=== PATIENT | male | born 1945 | race Caucasian/White ===

== ENCOUNTER 2017-06-04 11:56 | Day surgery (SDC) | payer MEDICARE, BC ==
[~2017-06-04 11:56] MED LIST: Acetaminophen TAB* 325 MG PO PRN; Buffered Lidocaine 0.9% SYRIN* 5 ML/SYR SYRINGE INTRADERM ONE
[2017-06-04] MEDS ORDERED: Midazolam* 1 MG/ML 2 ML VIAL (2 MG) ONE ×2 (13:48→14:00)
[2017-06-04 14:50] VITALS: BP 128/68
[2017-06-04] MEDS ORDERED: Cyclopentolate 1% OPTH.SOL* 2 ML BTL ONE (14:58)
[2017-06-04] MEDS ORDERED: Neomycin/Polymy/Dex OPTH.SUSP* MAXITROL 0.1% 5 ML ONE (14:58)
[2017-06-04] MEDS ORDERED: Lidocaine 2% EPI 1:200000 MPF* 20 ML VIAL ONE (14:58)
[2017-06-04] MEDS ORDERED: Povidone Iodine 5% OPTH* 30 ML BTL ONE (14:58)
[2017-06-04] MEDS ORDERED: Lidocaine 1% MPF* 2 ML VIAL ONE (14:58)
[2017-06-04] MEDS ORDERED: Ketorolac 0.5% OPHTH (NF) 0.5 % 5 ML BTL ONE (14:58)
[2017-06-04] MEDS ORDERED: acetaZOLAMIDE TAB* 250 MG ONE (14:58)
[2017-06-04] MEDS ORDERED: Phenylephrine 2.5% OPTH.SOL* 2 ML BTL ONE (14:58)
[2017-06-04] MEDS ORDERED: Proparacaine 0.5% OPHTH.SOL* 15 ML BTL ONE (14:58)
--- NOTE | 2017-06-05 04:55 | OP ---
DATE OF OPERATION: 06/04/17 - [facility] DATE OF : 43 SURGEON: Toni Akbar MD PREOPERATIVE DIAGNOSES: Cataract, right; moderate glaucoma, right eye. POSTOPERATIVE DIAGNOSES: Cataract, right; moderate glaucoma, right eye. OPERATIVE PROCEDURE: Extracapsular cataract extraction with intraocular lens implant and iStent. DESCRIPTION OF PROCEDURE: The patient was brought to the operating room after being given 1/2% Alcaine with epinephrine drops in the preoperative area. The eye was prepped and draped in the usual sterile fashion. Sterile drape and eyelid speculum were placed. Again, topical 1/2% Alcaine with epinephrine was given. A paracentesis incision was made at the 9 o'clock position with the No.75 blade. Clear cornea incision 2.2 x 2.2-mm was created at the 12 o'clock position starting at the anterior limbus using the 2.2-mm keratome. The anterior chamber was irrigated with 0.4 mL of 1% non-preservative intracameral lidocaine and filled with DisCoVisc. A capsulorrhexis was completed using the cystotome and the Utrata forceps. Hydrodissection was performed with balanced salt solution. The lens nucleus was removed with the Phacoemulsification handpiece without incident. Cortex was removed with the irrigation-aspiration handpiece. The capsular bag was re-inflated using DisCoVisc and an [id number] implant was inserted with the shooter, oriented to the 91-degree meridian followed by [id number] iStent inserted with the shooter into the 3 o'clock position into the trabecular mesh work. Horizontal reference reilly were made with the patient in seated position in the preoperative area. The irrigation- aspiration handpiece was used to remove all residual DisCoVisc. The eye was refilled with balanced salt solution and the wound checked and found to be watertight. Topical Maxitrol drops were given. [id number]/[facility] #: [id number] [facility]ALTH[facility]ARE SYSTEMRaffi
== END 2017-06-04 14:44 | disposition home or self-care (01) ==
LOC: OREAST 11:56
PROVIDERS: ATTEND Specialist
DX: H25.811 Combined forms of age-related cataract, right eye (principal); H40.1232 Low-tension glaucoma, bilateral, moderate stage; F17.210 Nicotine dependence, cigarettes, uncomplicated; I10 Essential (primary) hypertension; K21.9 Gastro-esophageal reflux disease without esophagitis
CPT/HCPCS: A9270-GY; C1783; J2250; V2787

== ENCOUNTER 2017-06-11 06:56 | Day surgery (SDC) | payer MEDICARE, BC ==
[2017-06-11] MEDS ORDERED: Midazolam* 1 MG/ML 2 ML VIAL (2 MG) ONE ×2 (08:10→08:32)
[2017-06-11 09:17] VITALS: BP 118/71
--- NOTE | 2017-06-11 09:46 | OP ---
DATE OF OPERATION: 06/11/2017. DATE OF : 1945. SURGEON: Toni Akbar M.D. PREOPERATIVE DIAGNOSIS: Cataract left eye, moderate glaucoma left. POSTOPERATIVE DIAGNOSIS: Cataract left eye, moderate glaucoma left. OPERATIVE PROCEDURE: Extracapsular cataract extraction with intraocular lens implant and iStent left eye. PROCEDURE: The patient was brought to the operating room after being given 1/2% Alcaine with epineph rine drops in the preoperative area. The eye was prepped and draped in the usual sterile fashion. S terile drape and eyelid speculum were placed. Again, topical 1/2% Alcaine with epinephrine was given . A paracentesis incision was made at the 3 o'clock position with the No.75 blade. Clear cornea inc ision 2.2 x 2.2-mm was created at the 6 o'clock position starting at the anterior limbus using the 2. 2-mm keratome. The anterior chamber was irrigated with 0.4 mL of 1% non-preservative intracameral li docaine and filled with DisCoVisc. A capsulorrhexis was completed using the cystotome and the Utrata forceps. Hydrodissection was performed with balanced salt solution. The lens nucleus was removed wi th the Phacoemulsification handpiece without incident. Cortex was removed with the irrigation-aspira tion handpiece. The capsular bag was re-inflated using DisCoVisc and an [id number] 14.5 implant was inse rted with the shooter, followed by a [id number] iStent inserted into the trabecular meshwork at the 9 o' clock position with its shooter. The irrigation-aspiration handpiece was used to remove all residual DisCoVisc. The eye was refilled with balanced salt solution and the wound checked and found to be w atertight. Topical Maxitrol drops were given. [id number]/[facility] #: [id number]
[2017-06-11] MEDS ORDERED: Proparacaine 0.5% OPHTH.SOL* 15 ML BTL ONE (12:09)
[2017-06-11] MEDS ORDERED: Cyclopentolate 1% OPTH.SOL* 2 ML BTL ONE (12:09)
[2017-06-11] MEDS ORDERED: Phenylephrine 2.5% OPTH.SOL* 2 ML BTL ONE (12:09)
[2017-06-11] MEDS ORDERED: Lidocaine 1% MPF* 2 ML VIAL ONE (12:09)
[2017-06-11] MEDS ORDERED: Povidone Iodine 5% OPTH* 30 ML BTL ONE (12:09)
[2017-06-11] MEDS ORDERED: Neomycin/Polymy/Dex OPTH.SUSP* MAXITROL 0.1% 5 ML ONE (12:09)
[2017-06-11] MEDS ORDERED: Ketorolac 0.5% OPHTH (NF) 0.5 % 5 ML BTL ONE (12:09)
[2017-06-11] MEDS ORDERED: acetaZOLAMIDE TAB* 250 MG ONE (12:09)
[2017-06-11] MEDS ORDERED: Lidocaine 2% EPI 1:200000 MPF* 20 ML VIAL ONE (12:09)
== END 2017-06-11 09:12 | disposition home or self-care (01) ==
LOC: OREAST 06:56
PROVIDERS: ATTEND Specialist
DX: H25.812 Combined forms of age-related cataract, left eye (principal); H40.1232 Low-tension glaucoma, bilateral, moderate stage; Z87.891 Personal history of nicotine dependence; I10 Essential (primary) hypertension
CPT/HCPCS: A9270-GY; C1783; J2250; V2632

== ENCOUNTER 2017-08-21 16:42 | Emergency (ER) | payer MEDICARE, BC ==
[2017-08-21] MEDS ORDERED: Etomidate* 2 MG/ML 20 ML VIAL (40 MG) ONE (17:10)
[2017-08-21] MEDS ORDERED: NS 0.9% 1000 ML* 1,000 ML IV ONE (17:21)
[2017-08-21 17:34] LABS: ABS Basophils 0.1 10^3/ul (0-0.2); ABS Eosinophils 0.1 10^3/ul (0-0.6); ABS Lymphocytes 4.4 10^3/ul (1.0-4.8); ABS Monocytes 0.9 10^3/ul (0-0.8); ABS Neutrophils 7.6 10^3/ul (1.5-7.7); ABS Nucleated RBC 0 10^3/ul; Eosinophil % 0.9 % (0-6); Hematocrit 44 % (42-52); Lymphocyte % 33.8 % (25-47); Mean Corpuscular HGB Conc 34 g/dl (31-36); Mean Corpuscular Hemoglobin 30 pg (27-31); Mean Corpuscular Volume 88 fL (80-94); Mean Platelet Volume 7.5 um3 (7.4-10.4); Nucleated Red Blood Cells % 0; Platelet Count 564 10^3/ul (150-450); Red Blood Count 4.96 10^6/ul (4.0-5.4); Red Cell Distribution Width 13 % (10.5-15); White Blood Count 13.1 10^3/ul (3.5-10.8)
[2017-08-21 17:50] LABS: EGFR Non-African American 73.2 (>60)
--- NOTE | 2017-08-21 18:27 | RAD ---
Indication: High heart rate. Single frontal view of the chest performed at 1734 hours was reviewed. Comparison is made with previous exam dated March 10, 2014. There is elevated left hemidiaphragm noted. Right lung field is clear. No mediastinal shift is noted. No pneumothorax is noted. IMPRESSION: ELEVATED LEFT HEMIDIAPHRAGM. RIGHT LUNG FIELD IS CLEAR.
[2017-08-21] MEDS ORDERED: Etomidate* 2 MG/ML 10 ML VIAL IV ONE (18:40)
--- NOTE | 2017-08-21 21:03 | ED ---
Hari Carreno Jennifer, scribed for Denzel Shabazz MD on 08/21/17 at 1659 . Dizziness - HPI Summary HPI Summary: The patient is a 72 year old male who presents with sudden onset dizziness today. The patient explains he was just on the phone when he became dizzy and then started to sweat. He explains it was strong but didnt last long. He additionally complains of an ache/pain in his jaw, pressure in the ears, shortness of breath, phlegm and cough, and a lot of pressure behind the eyes. The patient denies cardiac history. - History Of Current Complaint Chief Complaint: EDDizziness Stated Complaint: DIZZINESS/COLD SWEAT/HEAD PRESSURE Hx Obtained From: Patient Onset/Duration: Resolved, Suddenly Timing: Intermittent Episode Lasting - Did not last long Severity Initially: Mild Severity Currently: Mild Character: Dizzy Aggravating Factor(s): Nothing Alleviating Factor(s): Nothing Associated Signs And Symptoms: Positive: Other: - dizziness, sweats, jaw pain, pressure in ears, SOB, cough and phlegm, pressure behind the eyes - Allergies/Home Medications Allergies/Adverse Reactions: Allergies Allergy/AdvReac Type Severity Reaction Status Date / Time Penicillins Allergy Severe Anaphylatic Verified 06/11/17 07:15 Shock Home Medications: Home Medications Latanoprost 0.005%* [Xalatan 0.005%*] 1 drop BOTH EYES QAM 08/21/17 [History Confirmed 08/21/17] Naproxen Sodium [Aleve] 220 mg PO Q6HR PRN 08/21/17 [History Confirmed 08/21/17] Ranitidine TAB (NF) [Zantac TAB (NF)] 300 mg PO DAILY 08/21/17 [History Confirmed 08/21/17] hydroCHLOROthiazide [Hydrochlorothiazide] 12.5 mg PO DAILY 08/21/17 [History Confirmed 08/21/17] PMH/Surg Hx/FS Hx/Imm Hx Endocrine/Hematology History: Denies: Hx Diabetes Cardiovascular History: Reports: Hx Hypertension - controlled with meds Denies: Hx Congestive Heart Failure, Hx Pacemaker/ICD GI History: Reports: Hx Hiatal Hernia - elavated hemidiaphram History: Denies: Hx Renal Disease Musculoskeletal History: Reports: Hx Arthritis Sensory History: Reports: Hx Cataracts - both, Hx Contacts or Glasses - glasses , Hx Glaucoma, Hx Hearing Aid - hearing aides - doesn't wwear Opthamlomology History: Reports: Hx Cataracts - both, Hx Contacts or Glasses - glasses, Hx Glaucoma Neurological History: Reports: Hx Headaches - hemispherical - left eye and left head, Hx Migraine - hx of in past, Other Neuro Impairments/Disorders - Hx vertigo Psychiatric History: Denies: Hx Panic Disorder - Cancer History Hx Chemotherapy: No - Surgical History Surgery Procedure, Year, and Place: LYMPH NODES REMOVER - Lt COLLAR BONE. GANGLION CYST REMOVED. APPENDECTOMY. cyst from from under nipple Hx Anesthesia Reactions: No Infectious Disease History: No Infectious Disease History: Denies: Traveled Outside the [place] in Last 30 Days - Family History Known Family History: Negative: Renal Disease - Social History Alcohol Use: Daily Alcohol Amount: 1-2 drinks Substance Use Type: Reports: None Smoking Status (MU): Light Every Day Tobacco Smoker Amount Used/How Often: 4-5 cigarettes a day, smoked for 50 years approx Review of Systems Positive: Skin Diaphoresis Eyes: Other - pressure behind the eyes ENT: Other - pain in the jaw Positive: Ear Ache Positive: Shortness Of Breath, Cough Neurological: Other - Dizziness All Other Systems Reviewed And Are Negative: Yes Physical Exam - Summary Physical Exam Summary: Appearance: Well-appearing, Well-nourished Skin: Warm Eyes: Normal ENT: Normal Neck: Supple, nontender Respiratory: Clear to auscultation Cardiovascular: marked narrow complex tachycardia on monitor. Abdomen: Soft, nontender Musculoskeletal: Normal, Strength/ROM Intact Neurological: Normal, A&Ox3 Psychiatric: Normal General: No acute distress Triage Information Reviewed: Yes Vital Signs On Initial Exam: Initial Vitals Temp Pulse Resp BP Pulse Ox 98 F 192 22 101/76 95 08/21/17 16:45 08/21/17 16:45 08/21/17 16:45 08/21/17 16:45 08/21/17 16:45 Vital Signs Reviewed: Yes Procedures - Additional Procedures Additional Procedures: cardioversion/defib - 200J synchronized cardioversion with an anxiolytic onboard, Etomidate - 10mL. Patient restored back to normal sinus rhythm. Diagnostics - Vital Signs Vital Signs Temp Pulse Resp BP Pulse Ox 08/21/17 16:45 98 F 192 22 101/76 95 - Laboratory Lab Results: Lab Results 08/21/17 08/21/17 08/21/17 Range/Units 17:25 17:25 17:25 WBC 13.1 H (3.5-10.8) 10^3/ul RBC 4.96 (4.0-5.4) 10^6/ul Hgb 15.0 (14.0-18.0) g/dl Hct 44 (42-52) % MCV 88 (80-94) fL MCH 30 (27-31) pg MCHC 34 (31-36) g/dl RDW 13 (10.5-15) % Plt Count 564 H (150-450) 10^3/ul MPV 7.5 (7.4-10.4) um3 Neut % (Auto) 57.9 (38-83) % Lymph % (Auto) 33.8 (25-47) % Christian % (Auto) 6.7 (0-7) % Eos % (Auto) 0.9 (0-6) % Baso % (Auto) 0.7 (0-2) % Absolute Neuts (auto) 7.6 (1.5-7.7) 10^3/ul Absolute Lymphs (auto) 4.4 (1.0-4.8) 10^3/ul Absolute Monos (auto) 0.9 H (0-0.8) 10^3/ul Absolute Eos (auto) 0.1 (0-0.6) 10^3/ul Absolute Basos (auto) 0.1 (0-0.2) 10^3/ul Absolute Nucleated RBC 0 10^3/ul Nucleated RBC % 0 Sodium 142 (139-145) mmol/L Potassium 3.6 (3.5-5.0) mmol/L Chloride 103 (101-111) mmol/L Carbon Dioxide 30 (22-32) mmol/L Anion Gap 9 (2-11) mmol/L BUN 18 (6-24) mg/dL Creatinine 1.00 (0.67-1.17) mg/dL Est GFR ( Amer) 94.2 (>60) Est GFR (Non-Af Amer) 73.2 (>60) BUN/Creatinine Ratio 18.0 (8-20) Glucose 101 H (70-100) mg/dL Lactic Acid 1.5 (0.5-2.0) mmol/L Calcium 9.4 (8.6-10.3) mg/dL Total Bilirubin 0.40 (0.2-1.0) mg/dL AST 15 (13-39) U/L ALT 15 (7-52) U/L Alkaline Phosphatase 65 (34-104) U/L Troponin I 0.00 (<0.04) ng/mL Total Protein 7.0 (6.4-8.9) g/dL Albumin 4.1 (3.2-5.2) g/dL Globulin 2.9 (2-4) g/dL Albumin/Globulin Ratio 1.4 (1-3) TSH 1.12 (0.34-5.60) mcIU/mL / Range/Units 20:01 WBC (3.5-10.8) 10^3/ul RBC (4.0-5.4) 10^6/ul Hgb (14.0-18.0) g/dl Hct (42-52) % MCV (80-94) fL MCH (27-31) pg MCHC (31-36) g/dl RDW (10.5-15) % Plt Count (150-450) 10^3/ul MPV (7.4-10.4) um3 Neut % (Auto) (38-83) % Lymph % (Auto) (25-47) % Christian % (Auto) (0-7) % Eos % (Auto) (0-6) % Baso % (Auto) (0-2) % Absolute Neuts (auto) (1.5-7.7) 10^3/ul Absolute Lymphs (auto) (1.0-4.8) 10^3/ul Absolute Monos (auto) (0-0.8) 10^3/ul Absolute Eos (auto) (0-0.6) 10^3/ul Absolute Basos (auto) (0-0.2) 10^3/ul Absolute Nucleated RBC 10^3/ul Nucleated RBC % Sodium (139-145) mmol/L Potassium (3.5-5.0) mmol/L Chloride (101-111) mmol/L Carbon Dioxide (22-32) mmol/L Anion Gap (2-11) mmol/L BUN (6-24) mg/dL Creatinine (0.67-1.17) mg/dL Est GFR ( Amer) (>60) Est GFR (Non-Af Amer) (>60) BUN/Creatinine Ratio (8-20) Glucose (70-100) mg/dL Lactic Acid (0.5-2.0) mmol/L Calcium (8.6-10.3) mg/dL Total Bilirubin (0.2-1.0) mg/dL AST (13-39) U/L ALT (7-52) U/L Alkaline Phosphatase (34-104) U/L Troponin I 0.01 (<0.04) ng/mL Total Protein (6.4-8.9) g/dL Albumin (3.2-5.2) g/dL Globulin (2-4) g/dL Albumin/Globulin Ratio (1-3) TSH (0.34-5.60) mcIU/mL Result Diagrams: 08/21/17 17:25 08/21/17 17:25 Lab Statement: Any lab studies that have been ordered have been reviewed, and results considered in the medical decision making process. - Radiology CXR Xray Interpretation: Positive (See Comments) - ELEVATED LEFT HEMIDIAPHRAGM. RIGHT LUNG FIELD IS CLEAR. Dr. Shabazz has reviewed this report. Radiology Interpretation Completed By: Radiologist - EKG 1654 Cardiac Rate: Tachycardia EKG Rhythm: Sinus Tachycardia - 185 BPM EKG Interpretation: Nonspecific intraventricular conduction delay, narrow complex tachycardia 1722 Cardiac Rate: NL EKG Rhythm: Sinus Rhythm - 98 BPM EKG Interpretation: Left axis deviation, Borderline T abnormalities in the lateral leads - Additional Comments Diagnostic Additional Comments: EKG 3 at 1956. Normal sinus rhythm 82 BPM. Nonspecific T wave flattening in V5 and V6. ST elevation without reciprocal depressions in V1. Mildly prolonged QTC. Re-Evaluation - Re-Evaluation First Eval Change: Improved - Patient is a symptomatically without any chest pain shortness of breath. And has any palpitations or dizziness. Dizzy Course/Dx - Course Assessment/Plan: Successful cardioversion based on EKG. Patient's underlying diagnosis is most likely paroxysmal SVT initial episode without any prior episodes. Patient has been in normal sinus rhythm at a normal rate for his stay here in the emergency department, and this remained a symptomatically with negative troponins 2. Patient also denies any shortness of breath or additional episodes palpation. I stressed to him the importance of cardiology follow-up promptly, and the patient and his family agree to return to ED if they have any repeat episodes or if they have any additional concerning symptoms such as chest pain, shortness of breath, palpitations, or any other concerning symptoms. I also instructed him and his family to return immediately having trouble obtaining follow up with a afterschool. Patient and family agrees to and understand discharge instructions. I had a conversation with Dr. Teixeira who I discussed the case with, in agreement with plan - Diagnoses Provider Diagnoses: Paroxysmal SVT (supraventricular tachycardia) Discharge - Sign-Out/Discharge Documenting (check all that apply): Discharge/Admit/Transfer - Discharge Plan Condition: Improved Disposition: HOME Patient Education Materials: Supraventricular Tachycardia (ED) Referrals: Toni Owusu MD [Primary Care Provider] - Jose Felix MD [Medical Doctor] - Jerilyn Fajardo MD [Medical Doctor] - Additional Instructions: PLEASE MAKE AN APPOINTMENT FIRST THING IN THE MORNING TO BE SEEN BY A CARDOLOGIST WITHIN 3-5 DAYS PLEASE RETURN TO THE EMERGENCY ROOM IMMEDIATELY IF YOU HAVE ANY WORSENING OR CONCERNING SYMPTOMS PLEASE MAKE AN APPOINTMENT FIRST THING IN THE MORNING TO BE SEEN BY YOUR PRIMARY CARE DOCTOR WITHIN 1 WEEK - Billing Disposition and Condition Condition: IMPROVED Disposition: HOME The documentation as recorded by the Hari us Jennifer accurately reflects the service I personally performed and the decisions made by me, Denzel Shabazz MD.
[2017-08-21 21:18] VITALS: BP 134/75
== END 2017-08-21 21:17 | disposition home or self-care (01) ==
LOC: ED 16:42
DX: I47.1 Supraventricular tachycardia (principal); J98.6 Disorders of diaphragm; F17.210 Nicotine dependence, cigarettes, uncomplicated; Z88.0 Allergy status to penicillin
CPT/HCPCS: 36415; 71045; 80053; 83605; 84443; 84484; 85025; 92960; 93005; 96361; 96374; 99285